=== PATIENT | female | born 1965 | race Caucasian/White ===

== ENCOUNTER → 2017-04-12 | Outpatient (CLI) | payer MEDICARE ==
--- NOTE | ~2017-04-12 | MR113 ---
[facility] A Service of [facility] & [facility] RADIOLOGY TEXT RESULTS PATIENT: HERBIE MAYORGA LOCATION: [facility] : 61 UNIT #: [id number] AGE: [address]: Betito Graves MD SEX: F ORDER DR: [id number] [address] [id number] O MR#: [id number] Acc #: [id number] NAME: HERBIE MAYORGA : 1965 SEX: F STUDY DATE/TIME: 04/12/2017 17:40 UNIT: [facility] ROOM: STUDY DESCRIPTION: MR Lumbar Wo Contrast Attending Physician: Betito Graves M.D. Referring Physician: Betito Graves M.D. Ordering Physician: Betito Graves M.D. Primary Care Physician: Primary Care Physician No MRI CENTER REPORT This report is preliminary unless electronic signature is present. EXAM MRI of the lumbar spine without contrast dated 04/12/2017. COMPARISON Plain films lumbar spine dated 04/02/2017. HISTORY History of back surgery in 2014. Low back pain for 4 years. Bilateral lower extremity pain. FINDINGS Multisequence multiplanar imaging of the lumbar spine was obtained without contrast. Postoperative hardware is noted with bipedicular screws from L3-L5 along with stabilization rods. At 3-4 and L4-5 intervertebral disc prosthesis are also seen. Susceptibility artifact from the hardware limits evaluation of adjacent structures. There is edema noted within the subcutaneous soft tissue extending to the posterior aspect of the spinous process from the level of L1-2 to the level of L5-S1, most prominent from L2 to L4. Retroperitoneum is unremarkable. Conus terminates at inferior aspect of T12 close to T12-L1. Visualized conus and cauda equina do not demonstrate any obvious abnormality. T12-L1: Concentric disc bulge with superimposed central protrusion with mild mass effect on the adjacent thecal sac. Axials were not obtained. L1-2: Concentric disc bulge which is asymmetrically prominent in the left foraminal to extraforaminal regions suggestive of superimposed broad-based protrusion. Superimposed central focal protrusion is probably present also. There are mild to moderate bilateral facet hypertrophic changes with borderline size canal and mild inferior left neural foraminal encroachment. L2-3: Moderate disc bulge which is asymmetrically prominent in bilateral STS. [facility] A Service of [facility] & [facility] RADIOLOGY TEXT RESULTS PATIENT: HERBIE MAYORGA LOCATION: [facility] : 61 UNIT #: [id number] AGE: [address]: Betito Graves MD SEX: F ORDER DR: foraminal to extraforaminal regions, worse on the left. They are likely related to superimposed broad-based protrusions. Bilateral facet changes are noted with [id number] mass effect on the thecal sac. Mild inferior bilateral neural foraminal narrowing is seen, worse on the left. L3-4, L4-5: Postoperative changes are noted with widely patent thecal sac and neural foramina. L5-S1: Mild disc bulge with small central protrusion. Patent thecal sac and neural foramina. IMPRESSION 1. Redemonstrated are the known postoperative changes with hardware from the level of L3 to L5 as described above. 2. Mild degenerative disc disease is noted from T12-L1 to L2-3 and at L5-S1 levels as described above. 3. Edematous changes are noted within the subcutaneous soft tissue extending to the posterior aspect of the spinous process in the lower spine, most prominent from the level of L1 to the level of L4. It is suggestive of mild edematous change. No drainable fluid collection could be identified. 4. Postoperative changes are noted from L3 to L5. 1. 1. Dictated by... Elba Mccormick M.D. THIS IS AN ELECTRONICALLY VERIFIED REPORT Elba Mccormick M.D. at 04/23/2017 10:27 AM CPR/cmtimo TD: 04/16/2017 14:47 JOB #: [id number] MRI CENTER REPORT Page 1 of 1
== END | disposition home or self-care (01) ==
LOC: SMRI 17:27
DX: M54.5 Low back pain (principal); M51.35 Other intervertebral disc degeneration, thoracolumbar region; M51.36 Other intervertebral disc degeneration, lumbar region; M51.37 Other intervertebral disc degeneration, lumbosacral region; Z98.890 Other specified postprocedural states
CPT/HCPCS: 72148